=== PATIENT | female | born 1950 | race Two or more races ===

== ENCOUNTER 2017-04-25 14:55 | Outpatient (CLI) | payer OTHER ==
[~2017-04-25 14:55] MED LIST: CIPRO750 MG PO; Colace 100MG PO; NEURONTIN PO; PERCOCET 5/3251 TAB PO; Zolpidem Tartrate 10MG PO
== END 2017-04-25 15:02 | disposition home or self-care (01) ==
LOC: RAD 501 14:55
DX: M43.10 Spondylolisthesis, site unspecified (principal); Z98.1 Arthrodesis status

== ENCOUNTER 2017-10-18 08:41 | Outpatient (CLI) | payer OTHER | END 2017-10-18 08:49 | disposition home or self-care (01) | LOC: MRI 08:41 | DX: M43.10 Spondylolisthesis, site unspecified (principal) | CPT/HCPCS: 72148 ==